=== PATIENT | female | born 1970 | race Caucasian/White ===

== ENCOUNTER 2017-07-06 07:07 | Observation (INO) | payer MEDICAID ==
[~2017-07-06 07:07] MED LIST: CEFAZOLIN 1 GM INJ; METOCLOPRAMIDE 10 MG INJ; ONDANSETRON 4 MG INJ
[2017-07-06 10:23] LABS: ADD MAN DIFF? NO
[2017-07-06 10:29] LABS: WHITE BLOOD COUNT 5.7 10^3/ul (4.8-10.8)
[2017-07-06 10:29] LABS: BASOPHILS % 0.7 % (0.0-2.0); EOSINOPHILS # 0.1 10^3/ul (0.0-0.5); EOSINOPHILS % 2.1 % (0.0-7.0); HEMATOCRIT 40.4 % (37.0-47.0); HEMOGLOBIN 13.5 g/dl (12.0-16.0); LYMPHOCYTES # 2.6 10^3/ul (0.8-2.9); LYMPHOCYTES % 44.9 % (15.0-51.0); MEAN CORPUSCULAR HGB CONC 33.4 g/dl (32.0-37.0); MEAN CORPUSCULAR VOLUME 92.9 fl (82.0-101.0); MEAN PLATELET VOLUME 10.9 fl (7.4-10.4); MONOCYTE # 0.4 10^3/ul (0.3-0.9); MONOCYTES % 6.5 % (0.0-11.0); NEUTROPHIL # 2.6 10^3/ul (1.6-7.5); NEUTROPHILS % 45.6 % (39.0-77.0); PLATELET COUNT 329 10^3/UL (140-415); RED BLOOD COUNT 4.35 10^6/ul (4.20-5.40); RED CELL DISTRIBUTION WIDTH 14.1 % (11.5-14.5)
[2017-07-06 10:44] LABS: INR 0.99; PROTIME 13.2 Sec (11.9-14.9)
[2017-07-06 10:45] LABS: PARTIAL THROMBOPLASTIN TIME 31.1 Sec (25.0-35.0)
[2017-07-06 10:54] LABS: ALANINE AMINOTRANSFERASE 49 IU/L (13-69); ALBUMIN/GLOBULIN RATIO 1.21; ALKALINE PHOSPHATASE 88 IU/L (42-121); ANION GAP 13 (8-16); ASPARTATE AMINO TRANSFERASE 48 IU/L (15-46); BILIRUBIN,INDIRECT 0.5 mg/dl (0-1.1); BILIRUBIN,TOTAL 0.5 mg/dl (0.2-1.3); BLOOD UREA NITROGEN 14 mg/dl (7-20); CARBON DIOXIDE 28 mmol/L (21-31); CHLORIDE 107 mmol/L (97-110); GLUCOSE 94 mg/dl (70-220); POTASSIUM 4.2 mmol/L (3.5-5.1); SODIUM 144 mmol/L (135-144); TOTAL PROTEIN 7.3 g/dl (6.1-8.1)
[2017-07-06] MEDS ORDERED: FENTAnyl 50 MCG/ML VIAL (11:24)
[2017-07-06] MEDS ORDERED: LIDOCAINE 100 MG SYRINGE (11:25)
[2017-07-06] MEDS ORDERED: DEXAMETHASONE 4 MG/ML 1 ML INJ (11:25)
[2017-07-06] MEDS ORDERED: MIDAZOLAM 1 MG/ML 2 ML INJ (11:25)
[2017-07-06] MEDS ORDERED: PROPOFOL 20 ML (11:25)
[2017-07-06] MEDS ORDERED: BUPIVACAINE 0.5%/EPI (SDV) 30 ML INJ (12:08)
[2017-07-06] MEDS: ISOSULFAN BLUE 1% 5 ML INJ SC (13:04)
[2017-07-06] MEDS ORDERED: ONDANSETRON 4 MG INJ IV (14:00)
[2017-07-06] MEDS ORDERED: ACETAMINOPHEN 1000MG/100ML IV 100 ML IVPB (14:00)
[2017-07-06] MEDS ORDERED: morphine 2 MG INJ IV (14:00)
[2017-07-06] MEDS ORDERED: DIPHENHYDRAMINE 50 MG INJ IV (14:30)
[2017-07-06] MEDS ORDERED: MEPERIDINE 25 MG INJ IV (14:30)
[2017-07-06] MEDS ORDERED: FENTAnyl 50 MCG/ML VIAL IV ×2 (14:30)
[2017-07-06] MEDS: HYDROmorphONE (0.2 MG/ML) 10ML SYG IV ×2 (14:43→14:53)
[2017-07-06] MEDS: ONDANSETRON 4 MG INJ IV (14:44)
[2017-07-06] MEDS: D5W-0.45 NACL + KCL 20 MEQ 1,000 ML IV (15:55)
[2017-07-06] MEDS: HYDROCODONE/APAP (5/325) TAB PO ×2 (17:53→21:44)
[2017-07-07] MEDS: D5W-0.45 NACL + KCL 20 MEQ 1,000 ML IV ×3 (01:14→13:58)
[2017-07-07] MEDS: HYDROCODONE/APAP (5/325) TAB PO ×3 (04:20→15:41)
[2017-07-07 05:47] LABS: ADD MAN DIFF? NO
[2017-07-07 05:49] LABS: WHITE BLOOD COUNT 9.6 10^3/ul (4.8-10.8)
[2017-07-07 05:49] LABS: BASOPHILS % 0.2 % (0.0-2.0); HEMOGLOBIN 12.9 g/dl (12.0-16.0); LYMPHOCYTES # 1.9 10^3/ul (0.8-2.9); LYMPHOCYTES % 19.5 % (15.0-51.0); MEAN CORPUSCULAR HEMOGLOBIN 31.6 pg (29.0-33.0); MEAN CORPUSCULAR HGB CONC 33.9 g/dl (32.0-37.0); MEAN CORPUSCULAR VOLUME 93.1 fl (82.0-101.0); MEAN PLATELET VOLUME 11.4 fl (7.4-10.4); MONOCYTE # 0.5 10^3/ul (0.3-0.9); MONOCYTES % 4.8 % (0.0-11.0); NEUTROPHIL # 7.2 10^3/ul (1.6-7.5); NEUTROPHILS % 75.3 % (39.0-77.0); PLATELET COUNT 319 10^3/UL (140-415); RED BLOOD COUNT 4.08 10^6/ul (4.20-5.40); RED CELL DISTRIBUTION WIDTH 14.1 % (11.5-14.5)
[2017-07-07 06:20] LABS: ANION GAP 14 (8-16); BLOOD UREA NITROGEN 10 mg/dl (7-20); CALCIUM 8.3 mg/dl (8.4-10.2); CARBON DIOXIDE 24 mmol/L (21-31); CHLORIDE 109 mmol/L (97-110); CREATININE 0.59 mg/dl (0.44-1.00); GLUCOSE 122 mg/dl (70-220); SODIUM 143 mmol/L (135-144)
== END 2017-07-07 17:00 | disposition home or self-care (01) ==
LOC: SDS 07:07 → REC 13:59 → MS1 15:30
DX: C50.911 Malignant neoplasm of unspecified site of right female breast (principal); C77.3 Secondary and unspecified malignant neoplasm of axilla and upper limb lymph nodes
CPT/HCPCS: 19301; 80048; 80053; 84703; 85025; 85610; 85730; 88307; 88331; 99217

== ENCOUNTER 2017-12-28 09:06 | Inpatient (IN) | payer MEDICAID ==
[2017-12-28] MEDS: ONDANSETRON 4 MG INJ IV ×2 (10:21→19:41)
[2017-12-28] MEDS: morphine 4 MG/ML VIAL IV (10:21)
[2017-12-28 10:22] LABS: ADD UMIC NO; UR ASCORBIC ACID NEGATIVE (NEGATIVE); UR BILIRUBIN (Dip) NEGATIVE (NEGATIVE); UR BLOOD (Dip) NEGATIVE (NEGATIVE); UR CLARITY CLEAR (CLEAR); UR COLOR YELLOW (YELLOW); UR GLUCOSE (Dip) NEGATIVE (NEGATIVE); UR KETONES (Dip) NEGATIVE (NEGATIVE); UR LEUKOCYTE ESTERASE (Dip) NEGATIVE Leu/ul (NEGATIVE); UR NITRITE (Dip) NEGATIVE (NEGATIVE); UR SPECIFIC GRAVITY (Dip) 1.018 (1.003-1.030); UR TOTAL PROTEIN (Dip) NEGATIVE (NEGATIVE); UR UROBILINOGEN (Dip) NEGATIVE (NEGATIVE)
[2017-12-28] MEDS: SOD CHLORIDE 0.9% 1,000 ML IV (10:22)
[2017-12-28 10:27] LABS: ABNORMAL IP MESSAGE 1; HEMATOCRIT 36.3 % (37.0-47.0); HEMOGLOBIN 11.7 g/dl (12.0-16.0); INR 0.95; MEAN CORPUSCULAR HEMOGLOBIN 31.1 pg (29.0-33.0); MEAN CORPUSCULAR HGB CONC 32.2 g/dl (32.0-37.0); MEAN CORPUSCULAR VOLUME 96.5 fl (82.0-101.0); MEAN PLATELET VOLUME 10.9 fl (7.4-10.4); PLATELET COUNT 351 10^3/UL (140-415); PROTIME 12.8 Sec (11.9-14.9); RED BLOOD COUNT 3.76 10^6/ul (4.20-5.40); RED CELL DISTRIBUTION WIDTH 15.9 % (11.5-14.5)
[2017-12-28 10:27] LABS: WHITE BLOOD COUNT 1.8 10^3/ul (4.8-10.8)
[2017-12-28 10:28] LABS: PARTIAL THROMBOPLASTIN TIME 30.3 Sec (23.0-35.0)
[2017-12-28 10:29] LABS: ADD MAN DIFF? YES; POSITIVE DIFF @See below
[2017-12-28 10:49] LABS: ALANINE AMINOTRANSFERASE 27 IU/L (13-69); ALBUMIN 3.6 g/dl (3.3-4.9); ALBUMIN/GLOBULIN RATIO 1.28; ALKALINE PHOSPHATASE 82 IU/L (42-121); AMYLASE 49 U/L (11-123); ANION GAP 7 (5-13); ASPARTATE AMINO TRANSFERASE 34 IU/L (15-46); BILIRUBIN,INDIRECT 0.4 mg/dl (0-1.1); BILIRUBIN,TOTAL 0.4 mg/dl (0.2-1.3); BLOOD UREA NITROGEN 12 mg/dl (7-20); CALCIUM 8.8 mg/dl (8.4-10.2); CARBON DIOXIDE 26 mmol/L (21-31); CHLORIDE 108 mmol/L (97-110); CREATININE 0.54 mg/dl (0.44-1.00); Estimated GFR > 60 mL/min (>60); GLUCOSE 102 mg/dl (70-220); LIPASE 92 U/L (23-300); POTASSIUM 4.1 mmol/L (3.5-5.1); SODIUM 141 mmol/L (135-144); TOTAL PROTEIN 6.4 g/dl (6.1-8.1)
[2017-12-28 11:00] LABS: TROPONIN-I < 0.012 ng/ml (0.000-0.120)
[2017-12-28 11:01] LABS: ANISOCYTOSIS 1+ (0-0); BAND NEUTROPHILS #M 0.3 10^3/ul (0.0-0.6); BAND NEUTROPHILS % (M) 17 % (0-4); BASOPHILS % (M) 5 % (0-2); EOSINOPHILS % (M) 4 % (0-7); LYMPHOCYTES #M 0.7 10^3/ul (0.8-2.9); LYMPHOCYTES % (M) 44 % (15-51); METAMYELOCYTES %M 1 % (0-0); MONOCYTES % (M) 3 % (0-11); PLATELET ESTIMATE NORMAL; POIKILOCYTOSIS 2+ (0-0); SEG NEUT #M 0.5 10^3/ul (1.6-7.5); SEGMENTED NEUTROPHILS (M) % 26 % (39-77); SMUDGE%M 16 % (0-0)
[2017-12-28] MEDS: IOHEXOL 300MG/ML 150 ML BTL (12:25)
[2017-12-28] MEDS: SOD CHLORIDE 0.9% 100 ML (12:25)
[2017-12-28] MEDS ORDERED: DOCUSATE SODIUM 100 MG CAP PO (12:30)
[2017-12-28] MEDS ORDERED: NACL 0.9% 3 ML SYG IV (12:30)
[2017-12-28] MEDS ORDERED: morphine 2 MG INJ IV (12:30)
[2017-12-28] MEDS ORDERED: HYDROCODONE/APAP (5/325) TAB PO (12:30)
[2017-12-28] MEDS ORDERED: ZOLPIDEM 5 MG TAB PO (12:30)
[2017-12-28] MEDS: D5W-0.45 NACL + KCL 20 MEQ 1,000 ML IV ×2 (14:55→22:28)
[2017-12-28] MEDS: PANTOPRAZOLE 40 MG INJ IV ×2 (14:55→20:00)
[2017-12-28] MEDS: BISACODYL (EC) 5 MG TAB PO (17:44)
[2017-12-28] MEDS: POLYETHYLENE GLYCOL 3350 119 GM POWDER PO (18:13)
[2017-12-28] MEDS: MAGNESIUM CITRATE 300 ML BTL PO (18:51)
[2017-12-29] MEDS: D5W-0.45 NACL + KCL 20 MEQ 1,000 ML IV ×3 (01:04→22:54)
[2017-12-29 05:21] LABS: ABNORMAL IP MESSAGE 1; HEMATOCRIT 34.9 % (37.0-47.0); HEMOGLOBIN 11.4 g/dl (12.0-16.0); MEAN CORPUSCULAR HEMOGLOBIN 31.4 pg (29.0-33.0); MEAN CORPUSCULAR HGB CONC 32.7 g/dl (32.0-37.0); MEAN CORPUSCULAR VOLUME 96.1 fl (82.0-101.0); MEAN PLATELET VOLUME 10.7 fl (7.4-10.4); PLATELET COUNT 331 10^3/UL (140-415); RED BLOOD COUNT 3.63 10^6/ul (4.20-5.40); RED CELL DISTRIBUTION WIDTH 15.9 % (11.5-14.5)
[2017-12-29 05:21] LABS: WHITE BLOOD COUNT 1.4 10^3/ul (4.8-10.8)
[2017-12-29 05:30] LABS: ADD MAN DIFF? YES; POSITIVE DIFF @See below
[2017-12-29 06:03] LABS: ALANINE AMINOTRANSFERASE 35 IU/L (13-69); ALBUMIN 3.4 g/dl (3.3-4.9); ALBUMIN/GLOBULIN RATIO 1.61; ALKALINE PHOSPHATASE 74 IU/L (42-121); ANION GAP 8 (5-13); ASPARTATE AMINO TRANSFERASE 37 IU/L (15-46); BILIRUBIN,INDIRECT 0.3 mg/dl (0-1.1); BILIRUBIN,TOTAL 0.3 mg/dl (0.2-1.3); BLOOD UREA NITROGEN 6 mg/dl (7-20); CALCIUM 8.6 mg/dl (8.4-10.2); CARBON DIOXIDE 26 mmol/L (21-31); CHLORIDE 108 mmol/L (97-110); CREATININE 0.51 mg/dl (0.44-1.00); Estimated GFR > 60 mL/min (>60); GLUCOSE 96 mg/dl (70-220); MAGNESIUM 2.2 mg/dl (1.7-2.5); PHOSPHORUS 3.4 mg/dl (2.5-4.9); POTASSIUM 4.2 mmol/L (3.5-5.1); SODIUM 142 mmol/L (135-144); TOTAL PROTEIN 5.5 g/dl (6.1-8.1)
[2017-12-29] MEDS: POLYETHYLENE GLYCOL 3350 119 GM POWDER PO (06:43)
[2017-12-29] MEDS: PANTOPRAZOLE 40 MG INJ IV ×2 (06:43→18:00)
[2017-12-29 07:09] LABS: BAND NEUTROPHILS % (M) 7 % (0-4); LYMPHOCYTES % (M) 55 % (15-51); SEG NEUT #M 0.2 10^3/ul (1.6-7.5); SEGMENTED NEUTROPHILS (M) % 14 % (39-77)
[2017-12-29 07:10] LABS: BASOPHILS % (M) 5 % (0-2); EOSINOPHILS % (M) 4 % (0-7); GIANT THROMBO% (M) 1 % (0-0); LYMPHOCYTES #M 0.7 10^3/ul (0.8-2.9); MONOCYTE #M 0.1 10^3/ul (0.3-0.9); MONOCYTES % (M) 12 % (0-11); PLATELET ESTIMATE NORMAL; POLYCHROMASIA 3+ (0-0); REACTIVE LYMPHOCYTES% (M) 3 % (0-0); SMUDGE%M 2 % (0-0)
[2017-12-29] MEDS: BISACODYL (EC) 5 MG TAB PO (08:31)
[2017-12-29] MEDS: FILGRASTIM 300 MCG INJ SC (17:10)
[2017-12-30 05:17] LABS: ABNORMAL IP MESSAGE 1; HEMATOCRIT 33.6 % (37.0-47.0); HEMOGLOBIN 11.1 g/dl (12.0-16.0); MEAN CORPUSCULAR HEMOGLOBIN 31.6 pg (29.0-33.0); MEAN CORPUSCULAR VOLUME 95.7 fl (82.0-101.0); MEAN PLATELET VOLUME 10.7 fl (7.4-10.4); PLATELET COUNT 321 10^3/UL (140-415); RED BLOOD COUNT 3.51 10^6/ul (4.20-5.40); RED CELL DISTRIBUTION WIDTH 15.9 % (11.5-14.5)
[2017-12-30 05:17] LABS: WHITE BLOOD COUNT 3.4 10^3/ul (4.8-10.8)
[2017-12-30 05:33] LABS: ANION GAP 5 (5-13); BLOOD UREA NITROGEN 3 mg/dl (7-20); CALCIUM 8.6 mg/dl (8.4-10.2); CARBON DIOXIDE 23 mmol/L (21-31); CHLORIDE 113 mmol/L (97-110); Estimated GFR > 60 mL/min (>60); GLUCOSE 97 mg/dl (70-220); POTASSIUM 4.1 mmol/L (3.5-5.1); SODIUM 141 mmol/L (135-144)
[2017-12-30 05:40] LABS: ADD MAN DIFF? YES; POSITIVE DIFF @See below
[2017-12-30] MEDS: PANTOPRAZOLE 40 MG INJ IV (05:41)
[2017-12-30 07:49] LABS: ANISOCYTOSIS 1+ (0-0); BAND NEUTROPHILS #M 0.6 10^3/ul (0.0-0.6); BAND NEUTROPHILS % (M) 18 % (0-4); BASOPHILS % (M) 1 % (0-2); LYMPHOCYTES #M 0.7 10^3/ul (0.8-2.9); LYMPHOCYTES % (M) 22 % (15-51); METAMYELOCYTES %M 2 % (0-0); MONOCYTE #M 0.6 10^3/ul (0.3-0.9); MONOCYTES % (M) 20 % (0-11); PLATELET ESTIMATE NORMAL; POLYCHROMASIA 3+ (0-0); SEG NEUT #M 1.3 10^3/ul (1.6-7.5); SEGMENTED NEUTROPHILS (M) % 37 % (39-77); SMUDGE%M 3 % (0-0)
[2017-12-30] MEDS: D5W-0.45 NACL + KCL 20 MEQ 1,000 ML IV (09:56)
[2017-12-30] MEDS: FILGRASTIM 300 MCG INJ SC (09:56)
[2017-12-30] MEDS: ACETAMINOPHEN 325 MG TAB PO (10:21)
[2017-12-31] MEDS ORDERED: PROPOFOL 20 ML (09:56)
[2017-12-31] MEDS ORDERED: LIDOCAINE 2% (SDV) 5 ML INJ (09:56)
== END 2017-12-30 14:28 | disposition home or self-care (01) | DRG 379 ==
LOC: E/R 09:06 → MS1 12:30
PROC: 0DJD8ZZ Inspection of Lower Intestinal Tract, Via Natural or Artificial Opening Endoscopic (ICD-10-PCS; principal; 2017-12-29 18:00)
DX: K92.1 Melena (principal); D70.1 Agranulocytosis secondary to cancer chemotherapy; D64.9 Anemia, unspecified; Z86.73 Personal history of transient ischemic attack (TIA), and cerebral infarction without residual deficits; K76.89 Other specified diseases of liver; T45.1X5A Adverse effect of antineoplastic and immunosuppressive drugs, initial encounter; R31.9 Hematuria, unspecified; R04.0 Epistaxis; K64.8 Other hemorrhoids; Z90.11 Acquired absence of right breast and nipple; Z85.3 Personal history of malignant neoplasm of breast
CPT/HCPCS: 36415; 71045; 74177; 80048; 80053; 81003; 82150; 83036; 83690; 83735; 84100; 84484; 84703; 85025; 85610; 85730; 86850; 86900; 86901; 93005; 96361; 96374; 96375; 99285-25

== ENCOUNTER 2018-02-14 12:52 | Emergency (ER) | payer MEDICAID ==
[2018-02-14 13:22] LABS: ADD MAN DIFF? NO
[2018-02-14 13:24] LABS: BASOPHIL # 0.1 10^3/ul (0.0-0.1); BASOPHILS % 0.8 % (0.0-2.0); EOSINOPHILS # 0.2 10^3/ul (0.0-0.5); EOSINOPHILS % 3.1 % (0.0-7.0); HEMATOCRIT 41.6 % (37.0-47.0); HEMOGLOBIN 13.6 g/dl (12.0-16.0); LYMPHOCYTES % 27.7 % (15.0-51.0); MEAN CORPUSCULAR HEMOGLOBIN 30.6 pg (29.0-33.0); MEAN CORPUSCULAR HGB CONC 32.7 g/dl (32.0-37.0); MEAN CORPUSCULAR VOLUME 93.7 fl (82.0-101.0); MEAN PLATELET VOLUME 10.3 fl (7.4-10.4); MONOCYTE # 0.5 10^3/ul (0.3-0.9); MONOCYTES % 7.5 % (0.0-11.0); NEUTROPHIL # 4.3 10^3/ul (1.6-7.5); NEUTROPHILS % 60.8 % (39.0-77.0); PLATELET COUNT 336 10^3/UL (140-415); RED BLOOD COUNT 4.44 10^6/ul (4.20-5.40); RED CELL DISTRIBUTION WIDTH 16.3 % (11.5-14.5)
[2018-02-14 13:24] LABS: WHITE BLOOD COUNT 7.1 10^3/ul (4.8-10.8)
[2018-02-14 13:41] LABS: ALANINE AMINOTRANSFERASE 34 IU/L (13-69); ALBUMIN 3.8 g/dl (3.3-4.9); ALBUMIN/GLOBULIN RATIO 1.46; ALKALINE PHOSPHATASE 75 IU/L (42-121); ANION GAP 10 (5-13); ASPARTATE AMINO TRANSFERASE 36 IU/L (15-46); BILIRUBIN,INDIRECT 0.3 mg/dl (0-1.1); BILIRUBIN,TOTAL 0.3 mg/dl (0.2-1.3); BLOOD UREA NITROGEN 15 mg/dl (7-20); CALCIUM 9.1 mg/dl (8.4-10.2); CARBON DIOXIDE 28 mmol/L (21-31); CHLORIDE 107 mmol/L (97-110); CREATININE 0.57 mg/dl (0.44-1.00); Estimated GFR > 60 mL/min (>60); GLUCOSE 98 mg/dl (70-220); SODIUM 145 mmol/L (135-144); TOTAL PROTEIN 6.4 g/dl (6.1-8.1)
[2018-02-14 13:44] LABS: INR 0.93; PROTIME 12.6 Sec (11.9-14.9)
[2018-02-14 13:45] LABS: PARTIAL THROMBOPLASTIN TIME 30.9 Sec (23.0-35.0)
== END 2018-02-14 15:35 | disposition home or self-care (01) ==
LOC: E/R 12:52
DX: R60.0 Localized edema (principal); Z85.3 Personal history of malignant neoplasm of breast
CPT/HCPCS: 36415; 80053; 85025; 85610; 85730; 93970; 99284-25